=== PATIENT | male | born 2000 | race Caucasian/White ===

== ENCOUNTER 2020-01-24 02:23 | Outpatient (CLI) | payer BC, SELFPAY ==
[2020-01-26 09:41] LABS: COVID-19 RT-PCR Result NEGATIVE (Negative)
== END 2020-01-24 02:43 ==
PROVIDERS: PCP Pediatrics; Visit Provider Pediatrics
DX: Z20.828 Contact with and (suspected) exposure to other viral communicable diseases (principal)
CPT/HCPCS: U0003

== ENCOUNTER 2022-09-27 18:50 | Outpatient (REF) | payer BC, SELFPAY ==
[2022-09-30 12:54] LABS: Hemoglobin S Screen Negative (Negative)
== END 2022-09-27 18:51 | disposition home or self-care (01) ==
LOC: LBN 18:50
PROVIDERS: PCP Nurse Practitioner Family; Visit Provider Physician Assistant Medical
DX: Z13.0 Encounter for screening for diseases of the blood and blood-forming organs and certain disorders involving the immune mechanism (principal)
CPT/HCPCS: 85660